=== PATIENT | female | born 1990 | race Caucasian/White ===

== ENCOUNTER 2016-08-14 20:20 | Inpatient (IN) | payer OTHER ==
[2016-08-14] VITALS (8 sets, daily range): BP systolic 98–106; BP diastolic 52–69; PULSE 70–100; TEMP 97.8–98
[~2016-08-14] VITALS: Ht 165.1 cm; Wt 82.7 kg
[~2016-08-14 20:20] MED LIST: FIORICET 325 MG1 TA1 PO; FLONASE NASAL S16 GM NS; NEXIUM 40MG40 MG PO; REGLAN 5MG T5 MG/TAB PO; ZOFRAN 4MG T4 MG/TAB PO; ZYRTEC 10MG10 MG PO
[2016-08-14] MEDS ORDERED: PRENATAL PO (20:45)
[2016-08-14 21:33] LABS: BASO % 0.3 % (0.0-2.0); EOS % 0.5 % (0-4.0); GRAN # 5.9 (1.4-6.5); LYMPH # 1.5 (1.2-3.4); LYMPH % 18.6 % (20.0-51.0); MEAN CELL VOLUME 89 fl (80.0-100.0); MEAN CORPUSCULAR HGB CONC 34 g/dl (33.0-37.0); MEAN PLATELET VOLUME 9.3 fl (7.4-10.4); MONO # 0.6 (0.1-0.6); MONO % 7.3 % (1.7-9.3); PLATELET COUNT 192 K/mm3 (130-400); RED BLOOD COUNT 3.54 M/mm3 (4.10-5.30); REDCELL DISTRIBUTION WIDTH-CV 13.2 % (11.5-14.5)
[2016-08-14 21:35] LABS: HEMATOCRIT 31.6 % (37.0-47.0); HEMOGLOBIN 10.7 g/dl (12.5-16.0); MEAN CORPUSCULAR HEMOGLOBIN 30 pg (27.0-31.0)
[2016-08-15] VITALS (20 sets, daily range): BP systolic 91–118; BP diastolic 49–67; PULSE 61–91; TEMP 97.4–98.5
[2016-08-16 00:30] VITALS: BP 98/60; PULSE 75; TEMP 97.8
[2016-08-16 07:30] VITALS: BP 103/64; PULSE 65; TEMP 97.7
[2016-08-16 09:40] LABS: HEMATOCRIT 34.6 % (37.0-47.0); HEMOGLOBIN 11.4 g/dl (12.5-16.0)
== END 2016-08-16 12:30 | disposition home or self-care (01) | DRG 775 ==
LOC: LDRO 20:20 → OB 20:55 → LDR 20:55 → OB 08-15 06:05
PROVIDERS: Obstetrics & Gynecology
PROC: 10E0XZZ Delivery of Products of Conception, External Approach (ICD-10-PCS; principal; 2016-08-15)
PROC: 0KQM0ZZ Repair Perineum Muscle, Open Approach (ICD-10-PCS; 2016-08-15)
DX: O70.1 Second degree perineal laceration during delivery (principal); Z3A.39 39 weeks gestation of pregnancy; Z37.0 Single live birth
CPT/HCPCS: J2590; J7120